=== PATIENT | female | born 1990 | race African-American/Black ===

== ENCOUNTER 2016-04-21 21:39 | Emergency (ER) | payer MEDICAID, OTHER ==
[~2016-04-21] VITALS: Ht 160 cm; Wt 73.0 kg
[2016-04-22] MEDS ORDERED: SODIUM CHLORIDE 0.9% 1,000 ML IV ONE (00:15)
[2016-04-22] MEDS ORDERED: KETOROLAC 30MG/ML VIAL IV ONE (00:15)
[2016-04-22] MEDS ORDERED: METOCLOPRAMIDE HCL 10MG/2ML VIAL IV ONE (00:15)
[2016-04-22] MEDS ORDERED: DIPHENHYDRAMINE 50MG/ML VIAL IV ONE (00:15)
[2016-04-22 01:00] VITALS: BP 112/82
== END 2016-04-22 01:32 | disposition left against medical advice (07) ==
LOC: ER 21:39
DX: R51 Headache (principal)
CPT/HCPCS: 81025; 96361; 96374; 96375; 99284; J1200; J1885; J2765; J7030; Z7610

== ENCOUNTER 2016-04-24 12:38 | Emergency (ER) | payer MEDICAID, OTHER ==
[~2016-04-24] VITALS: Ht 160 cm; Wt 73.0 kg
[2016-04-24] MEDS ORDERED: DIPHENHYDRAMINE 50MG/ML VIAL IV ONE (14:30)
[2016-04-24] MEDS ORDERED: SODIUM CHLORIDE 0.9% IRRIG SOLUTION 1000ML IR ONE (14:30)
[2016-04-24] MEDS ORDERED: METOCLOPRAMIDE HCL 10MG/2ML VIAL IV ONE (14:30)
[2016-04-24] MEDS ORDERED: KETOROLAC 30MG/ML VIAL IV ONE (14:30)
[2016-04-24] MEDS ORDERED: SODIUM CHLORIDE 0.9% 1,000 ML IV NR (14:45)
[2016-04-24 17:52] VITALS: BP 124/82
== END 2016-04-24 17:50 | disposition home or self-care (01) ==
LOC: ER 14:10
DX: G43.909 Migraine, unspecified, not intractable, without status migrainosus (principal)
CPT/HCPCS: 70450; 81025; 96361; 96374; 96375; 99284; J1200; J1885; J2765; J7030; Z7610

== ENCOUNTER 2021-07-10 18:36 | Emergency (ER) | payer OTHER ==
[~2021-07-10] VITALS: Ht 160 cm; Wt 75.0 kg
[2021-07-10 18:40] VITALS: BP 126/78
[2021-07-10 21:45] LABS: BASOPHILS % 0.4 % (0.0-2.0); EOSINOPHILS % 1.5 % (0.0-5.0); HEMATOCRIT. 37.1 % (36.0-48.0); HEMOGLOBIN. 12.2 g/dL (12.0-16.0); MEAN CORPUSCULAR HEMOGLOBIN 27.3 pg (28.0-32.0); MEAN CORPUSCULAR VOLUME 83.3 fL (81.0-99.0); MEAN PLATELET VOLUME 7.9 fl (7.4-10.4); MONOCYTES % 12.6 % (2.0-8.0); NEUTROPHILS % 52.5 % (40.0-76.0); PLATELET 229 x1000/uL (130-400); RED BLOOD CELL COUNT 4.46 mill/uL (4.2-5.4)
[2021-07-10 21:53] LABS: CHLORIDE 107 mEq/L (98-107)
[2021-07-10 22:03] LABS: B-HCG QUANTITATIVE 389 mIU/mL (<3)
== END 2021-07-11 01:28 | disposition home or self-care (01) ==
LOC: ER 18:36
DX: O02.1 Missed abortion (principal)
CPT/HCPCS: 36415; 76801; 80053; 84702; 85025; 86850; 86870; 86900; 99284